=== PATIENT | male | born 1965 | race Hispanic/Latino ===

== ENCOUNTER 2017-10-15 05:49 | Day surgery (SDC) | payer MEDICAID ==
[~2017-10-15] VITALS: Ht 162.6 cm; Wt 65.1 kg
[~2017-10-15 05:49] MED LIST: AEC81 PO; BUSP10TA3 PO; ESCI5SOL4 PO; ESOM20CA31 PO; FLUT16H NASAL; INS7030 SQ; LACT10SO8 PO; PREG100C PO; PROP60CA2 PO; QUET25TA PO; SODIUM CHLORIDE 0.9% 1000ML 1,000 ML IV ONE
[2017-10-15 06:14] VITALS: BP 100/62
[2017-10-15] MEDS ORDERED: PROPOFOL 10 MG/ML 20ML VIAL IV ONE (06:41)
[2017-10-15] MEDS ORDERED: FENTANYL CITRATE PF 50 MCG/1 ML 2ML VIAL ONE (06:41)
[2017-10-15] MEDS ORDERED: LIDOCAINE HCL-MPF 2% 5ML VIAL ONE (06:41)
[2017-10-15] MEDS ORDERED: GLYCOPYRROLATE 0.2 MG/ML 5 ML VIAL ONE (06:41)
[2017-10-15 06:48] VITALS: BP 97/62
[2017-10-15 06:56] VITALS: BP 97/62
[2017-10-15 07:02] VITALS: BP 113/73
[2017-10-15 07:06] VITALS: BP 118/75
== END 2017-10-15 07:50 | disposition home or self-care (01) ==
LOC: DAH 05:49 → ENDO 05:49
PROVIDERS: ATTEND Internal Medicine
DX: K29.70 Gastritis, unspecified, without bleeding (principal); B96.81 Helicobacter pylori [H. pylori] as the cause of diseases classified elsewhere; K22.8 Other specified diseases of esophagus; F32.9 Major depressive disorder, single episode, unspecified; I10 Essential (primary) hypertension; E78.5 Hyperlipidemia, unspecified; E11.51 Type 2 diabetes mellitus with diabetic peripheral angiopathy without gangrene; D64.9 Anemia, unspecified; Z79.899 Other long term (current) drug therapy; K21.0 Gastro-esophageal reflux disease with esophagitis
CPT/HCPCS: 43239; 82948 ×2; 88305; 88342; A4606; J2704; J3010; J3490 ×2; J7030